=== PATIENT | female | born 1955 | race Two or more races ===

== ENCOUNTER → 2024-08-09 | Outpatient (CLI) | payer OTHER, SELFPAY ==
--- NOTE | 2024-08-09 15:48 | XR_ITS ---
Examination: Lumbar spine 7 views Technique: AP, lateral, coned lateral lower lumbar spine, standing lateral flexion, standing lateral extension, FERNÁNDEZ, [place] 7 views Exam date and time: August 09, 2024 1638 hrs. Indications: Low back pain beginning one month ago. Findings: Significant osteopenia Moderate diffuse facet arthropathy No lumbar fracture Diffuse moderate to advanced lumbar degenerative disc disease, most severe at L3-L4, L4-L5 No spondylolisthesis Significantly reduced range of motion between flexion and extension Impression: Diffuse moderate to advanced lumbar degenerative disc disease
== END | disposition home or self-care (01) ==
LOC: CDIM 15:40
PROVIDERS: Referring Provider Family Medicine; Visit Provider Family Medicine
DX: M51.360 Other intervertebral disc degeneration, lumbar region with discogenic back pain only (principal)
CPT/HCPCS: 72114

== ENCOUNTER → 2025-01-30 | Outpatient (CLI) | payer OTHER, SELFPAY ==
--- NOTE | 2025-01-30 14:15 | XR_ITS ---
Examination: Screening digital mammography, bilateral Computer aided detection 3-D breast Tomosynthesis, bilateral Date and time of exam: 01/30/2025, 2:18 p.m. Comparisons: April 2021 through October 2023 Indications: Screening Technique: Nonmagnified MLO, CC views of the breasts to been obtained, reconstructed from 3-D Tomosynthesis images. R2 computer aided detection program utilized for evaluation of suspicious masses and/or abnormal calcifications. 3-D Tomosynthesis images obtained. Technologist: Findings: There are scattered areas of fibroglandular density. No evidence of abnormal masses or suspicious calcifications. Impression: BI-RADS category 1: Negative findings (within normal) Recommend 1 year follow-up mammogram
== END | disposition home or self-care (01) ==
PROVIDERS: PCP Family Medicine; Referring Provider Family Medicine; Visit Provider Family Medicine
DX: Z12.31 Encounter for screening mammogram for malignant neoplasm of breast (principal); R92.313 Mammographic fatty tissue density, bilateral breasts
CPT/HCPCS: 77063; 77067

== ENCOUNTER → 2025-02-05 | Outpatient (CLI) | payer OTHER, SELFPAY ==
--- NOTE | 2025-02-05 13:40 | XR_ITS ---
Examination: Bone densitometry Date and time of exam: February 05, 2025, 1353 hours INDICATIONS: Menopause age 53 calcium and vitamin D 3 months, personal history osteopenia Technique: Lumbar spine and hip total bone mineralization values of an calculated. Peak reference and age match control results have been displayed. Findings: Lumbar spine total bone mineralization is 0.925 gm/cm2. This is 1.1 standard deviations below peak reference. This is 1.0 standard deviations above age-matched controls. Hip total bone mineralization is 0.960 gm/cm2 This is 0.0 standard deviations at peak reference. This is 1.4 standard deviations above age-matched controls Impression: There is osteopenia based on lumbar spine measurements. There is osteopenia based on hip measurements Lumbar mineralization is increased 1.4% compared to April 21, 2021. Hip mineralization is decreased 0.5% compared with April 21, 2021
== END | disposition home or self-care (01) ==
LOC: CDIM 13:28
PROVIDERS: Referring Provider Family Medicine; Visit Provider Family Medicine
DX: M85.89 Other specified disorders of bone density and structure, multiple sites (principal)
CPT/HCPCS: 77080